=== PATIENT | female | born 1955 | race Caucasian/White ===

== ENCOUNTER → 2018-03-24 | Outpatient (CLI) | payer OTHER, MEDICARE ==
[~2018-03-24] MED LIST: AMIT100T53 PO; CLO5 PO; FEN75T; HYDR-5517 PO; HYDR2TAB74 PO; LORA-1458 PO; MORP-18 PO; MORP100T36 PO; MORP60TA51 PO; ONDA4TAB97 PO; OXYC10TA67 PO; OXYC20TA61 PO; OXYM20TA PO; OXYM30TA3 PO; OXYM5TAB PO; PER PO; PROM-110 PO; RAM8 PO
== END ==
LOC: LAB 12:13
PROVIDERS: ATTEND Physical Medicine & Rehabilitation Pain Medicine
DX: G89.4 Chronic pain syndrome (principal); Z79.891 Long term (current) use of opiate analgesic; M96.1 Postlaminectomy syndrome, not elsewhere classified; M96.0 Pseudarthrosis after fusion or arthrodesis; M54.16 Radiculopathy, lumbar region; M54.5 Low back pain; M12.9 Arthropathy, unspecified; M60.9 Myositis, unspecified; M49.87 Spondylopathy in diseases classified elsewhere, lumbosacral region; M53.3 Sacrococcygeal disorders, not elsewhere classified; M46.1 Sacroiliitis, not elsewhere classified; G60.9 Hereditary and idiopathic neuropathy, unspecified
CPT/HCPCS: 36415; 82040; 82247; 82310; 82374; 82435; 82565; 82947; 84075; 84132; 84155; 84295; 84450; 84460; 84520; 85027